=== PATIENT | female | born 1975 | race African-American/Black ===

== ENCOUNTER 2021-01-29 04:56 | Day surgery (SDC) | payer OTHER ==
[2021-01-27 15:07] VITALS: BMI 27.8
[2021-01-29] MEDS ORDERED: ceFAZolin 2 GRAM PREMIX BAG IVPB ONE (10:10)
[2021-01-29] MEDS ORDERED: ONDANSETRON 4 MG/2 ML VIAL ONE (13:26)
[2021-01-29] MEDS ORDERED: LIDOCAINE HCL/PF 2% SDV 5ML VIAL ONE (13:26)
[2021-01-29] MEDS ORDERED: DEXAMETHASONE SOD PHOSPHATE 4 MG/1 ML VIAL ONE (13:26)
[2021-01-29] MEDS ORDERED: PROPOFOL 20 ML ONE ×2 (13:26)
[2021-01-29] MEDS ORDERED: ROCURONIUM BROMIDE 100 MG/10 ML VIAL ONE (13:28)
[2021-01-29] MEDS ORDERED: MIDAZOLAM HCL 2 MG/2 ML SINGLE DOSE VIAL ONE (13:29)
[2021-01-29] MEDS ORDERED: ceFAZolin SODIUM 1 GM VIAL ONE (14:07)
[2021-01-29] MEDS ORDERED: ONDANSETRON 4 MG/2 ML VIAL IVPUSH PRN (15:43)
[2021-01-29] MEDS ORDERED: oxyCODONE HCL 5 MG TABLET PO PRN (15:43)
[2021-01-29] MEDS ORDERED: oxyCODONE HCL 5 MG TABLET ONE (17:28)
[2021-01-29 18:02] VITALS: BP 123/79; PULSE 88; TEMP 97.8
== END 2021-01-29 18:00 | disposition home or self-care (01) ==
LOC: JASU-SURG 04:56
PROVIDERS: ATTEND Obstetrics & Gynecology
PROC: 0UDB8ZX Extraction of Endometrium, Via Natural or Artificial Opening Endoscopic, Diagnostic (ICD-10-PCS; principal; 2021-01-29 14:00)
DX: D25.0 Submucous leiomyoma of uterus (principal); N84.0 Polyp of corpus uteri; N97.9 Female infertility, unspecified
CPT/HCPCS: 81025; 88305-TC; 94760

== ENCOUNTER 2021-05-14 04:20 | Inpatient (IN) | payer OTHER ==
[2021-05-13 13:13] VITALS: BMI 28.0
[2021-05-14] MEDS ORDERED: MIDAZOLAM HCL 2 MG/2 ML SINGLE DOSE VIAL ONE ×3 (12:57→13:01)
[2021-05-14] MEDS ORDERED: BUPIVACAINE HCL/PF 0.5% (5MG/ML) 10 ML VIAL ONE (12:59)
[2021-05-14] MEDS ORDERED: BUPIVACAINE LIPOSOME/PF (EXPAREL) 266 MG/20 ML VIAL ONE (12:59)
[2021-05-14] MEDS ORDERED: PROPOFOL 20 ML ONE ×3 (13:01→17:02)
[2021-05-14] MEDS ORDERED: LIDOCAINE HCL/PF 2% SDV 5ML VIAL ONE (13:01)
[2021-05-14] MEDS ORDERED: DEXAMETHASONE SOD PHOSPHATE 4 MG/1 ML VIAL ONE (13:01)
[2021-05-14] MEDS ORDERED: VASOPRESSIN 20 UNITS/ML VIAL IV ONE (14:13)
[2021-05-14] MEDS ORDERED: ROCURONIUM BROMIDE 50 MG/5 ML SYRINGE ONE (14:27)
[2021-05-14] MEDS ORDERED: ceFAZolin SODIUM 1 GM VIAL IVPB ONE (14:30)
[2021-05-14] MEDS ORDERED: ceFAZolin SODIUM 1 GM VIAL ONE (14:35)
[2021-05-14] MEDS ORDERED: ACETAMINOPHEN 1000 MG/100 ML BAG IVPB ONE ×2 (14:58→19:15)
[2021-05-14] MEDS ORDERED: ONDANSETRON 4 MG/2 ML VIAL IVPUSH PRN (14:58)
[2021-05-14] MEDS ORDERED: oxyCODONE HCL 5 MG TABLET PO PRN ×2 (14:58)
[2021-05-14] MEDS ORDERED: LACTATED RINGERS SOLUTION 1,000 ML IV SCH (15:00)
[2021-05-14] MEDS ORDERED: GLYCOPYRROLATE 0.2 MG/1 ML VIAL ONE (17:00)
[2021-05-14] MEDS ORDERED: NEOSTIGMINE METHYLSULFATE 0.5 MG/ML - 10 ML MDV ONE (17:00)
[2021-05-14] MEDS ORDERED: BENZOIN/ALOE VERA/STORAX/TOLU 58 ML BOTTLE TP ONE (17:14)
[2021-05-14] MEDS ORDERED: DEXTROSE 5%-0.45% SALINE 1,000 ML IV SCH (18:45)
[2021-05-14] MEDS ORDERED: ACETAMINOPHEN INJECTION 100 ML IVPB ONE (19:17)
[2021-05-14] MEDS ORDERED: HYDROmorphone *PCA* 10MG/50ML DISP.SYRIN ONE (19:33)
[2021-05-14] MEDS: HYDROmorphone *PCA* 10MG/50ML DISP.SYRIN PCA SCH ×2 (19:40→23:36)
[2021-05-14] MEDS ORDERED: DEXTROSE 5%-WATER 100 ML IVPB ONE (21:18)
[2021-05-14] MEDS ORDERED: DOXYCYCLINE HYCLATE 100 MG VIAL ONE (21:18)
[2021-05-14] MEDS: DOXYCYCLINE INJECTION 100 MG in DEXTROSE 5%-WATER 100 ML IVPB SCH (22:13)
[2021-05-15] MEDS: LACTATED RINGERS SOLUTION 1,000 ML IV SCH (02:40)
[2021-05-15] MEDS ORDERED: oxyCODONE HCL 5 MG TABLET PO PRN (08:00)
[2021-05-15] MEDS ORDERED: IBUPROFEN 600 MG TABLET (FP) PO PRN (08:00)
[2021-05-15] MEDS ORDERED: DOCUSATE SODIUM 100 MG CAPSULE (FP) PO PRN (08:00)
[2021-05-15 09:03] LABS: BASO % 0.1 % (0-2.0); HEMATOCRIT 27.6 % (32.4-45.2); LYMPH % 6.3 % (8-40); MCH 24.9 pg (25.7-33.7); MCHC 32.5 g/dl (32.0-36.0); MEAN CELL VOLUME 76.6 fl (80-96); MEAN PLT VOLUME 7.2 fl (7.5-11.1); MONO % 9.9 % (3.8-10.2); NEUT % 83.7 % (42.8-82.8); PLATELET COUNT 297 10^3/uL (134-434); RDW 16.1 % (11.6-15.6); WHITE BLOOD COUNT 11.7 K/mm3 (4.0-10.0)
[2021-05-15 09:40] LABS: CALCIUM 8.2 mg/dL (8.5-10.1)
[2021-05-15 09:41] LABS: BLOOD UREA NITROGEN 10.9 mg/dL (7-18)
[2021-05-15 09:43] LABS: ALBUMIN 2.8 g/dl (3.4-5.0)
[2021-05-15 09:46] LABS: CREATININE 0.6 mg/dL (0.55-1.3); TOT PROT 5.4 g/dl (6.4-8.2)
[2021-05-15] MEDS ORDERED: DOXYCYCLINE HYCLATE 100 MG VIAL ONE ×2 (09:48→20:51)
[2021-05-15] MEDS ORDERED: DEXTROSE 5%-WATER 100 ML IVPB ONE ×2 (09:48→20:52)
[2021-05-15] MEDS: DOXYCYCLINE INJECTION 100 MG in DEXTROSE 5%-WATER 100 ML IVPB SCH (09:51)
[2021-05-15 09:53] LABS: BILIRUBIN,TOTAL 0.3 mg/dL (0.2-1)
[2021-05-15] MEDS ORDERED: ACETAMINOPHEN 325 MG TABLET (FP) PO PRN (11:08)
[2021-05-15] MEDS: KETOROLAC TROMETHAMINE 15 MG/ML VIAL IVPUSH PRN (14:05)
[2021-05-15] MEDS: oxyCODONE HCL 5 MG TABLET PO PRN (17:00)
[2021-05-16] MEDS: KETOROLAC TROMETHAMINE 15 MG/ML VIAL IVPUSH PRN (00:22)
[2021-05-16] MEDS: DOXYCYCLINE INJECTION 100 MG in DEXTROSE 5%-WATER 100 ML IVPB SCH ×3 (00:23→21:45)
[2021-05-16] MEDS: LACTATED RINGERS SOLUTION 1,000 ML IV SCH ×2 (00:24→23:45)
[2021-05-16] MEDS: oxyCODONE HCL 5 MG TABLET PO PRN ×3 (07:42→22:53)
[2021-05-16] MEDS ORDERED: DEXTROSE 5%-WATER 100 ML IVPB ONE ×2 (09:12→20:20)
[2021-05-16] MEDS ORDERED: DOXYCYCLINE HYCLATE 100 MG VIAL ONE ×2 (09:12→20:19)
[2021-05-16] MEDS: SIMETHICONE 80 MG TAB.CHEW (FP) PO SCH ×2 (18:21→21:45)
[2021-05-17] MEDS: SIMETHICONE 80 MG TAB.CHEW (FP) PO SCH ×6 (01:31→21:27)
[2021-05-17] MEDS: oxyCODONE HCL 5 MG TABLET PO PRN ×2 (05:13→19:29)
[2021-05-17] MEDS ORDERED: DOXYCYCLINE HYCLATE 100 MG VIAL ONE (09:41)
[2021-05-17] MEDS ORDERED: DEXTROSE 5%-WATER 100 ML IVPB ONE (09:41)
[2021-05-17] MEDS: LACTATED RINGERS SOLUTION 1,000 ML IV SCH (09:46)
[2021-05-17] MEDS: DOXYCYCLINE INJECTION 100 MG in DEXTROSE 5%-WATER 100 ML IVPB SCH (09:47)
[2021-05-17] MEDS: DOXYCYCLINE HYCLATE 100 MG CAPSULE PO SCH (17:17)
[2021-05-17] MEDS: metroNIDAZOLE 250 MG TABLET PO SCH (21:27)
[2021-05-18] MEDS: SIMETHICONE 80 MG TAB.CHEW (FP) PO SCH ×4 (02:03→13:45)
[2021-05-18] MEDS: DOXYCYCLINE HYCLATE 100 MG CAPSULE PO SCH (09:37)
[2021-05-18] MEDS: metroNIDAZOLE 250 MG TABLET PO SCH (09:37)
[2021-05-18] MEDS ORDERED: MULTIVITAMINS (DAILY MVI) TABLET (FP) PO SCH (10:00)
[2021-05-18 15:46] VITALS: BP 117/71; PULSE 98; TEMP 98.6
== END 2021-05-18 18:34 | disposition home or self-care (01) | DRG 743 ==
LOC: J2C 04:20 → J8W 20:34
PROVIDERS: ADMIT Obstetrics & Gynecology; ATTEND Obstetrics & Gynecology
PROC: 0DNW0ZZ Release Peritoneum, Open Approach (ICD-10-PCS; 2021-05-14)
PROC: 0UB90ZZ Excision of Uterus, Open Approach (ICD-10-PCS; principal; 2021-05-14 13:30)
DX: D25.9 Leiomyoma of uterus, unspecified (principal); N73.6 Female pelvic peritoneal adhesions (postinfective)
CPT/HCPCS: 36415; 80053; 81025; 85025; 86850; 86900; 86901; 86922; 88305-TC; 94760